=== PATIENT | female | born 1970 | race African-American/Black ===

== ENCOUNTER 2019-11-24 18:12 | Emergency (ER) | payer BC ==
[~2019-11-24] VITALS: Ht 167.6 cm; Wt 86.2 kg
[2019-11-24 18:22] VITALS: BP 129/79
[2019-11-24] MEDS ORDERED: Omnipaque-300 100ml vial INJ ONE (19:00)
[2019-11-24] MEDS ORDERED: Ketorolac 30mg Inj IV ONE (19:00)
[2019-11-24] MEDS ORDERED: cefTRIAXone 1 GM in NS 55 ML IVPB ONE (19:00)
[2019-11-24 20:29] LABS: BASOPHILS % (AUTO) 2.1 % (0.0-2.0); EOSINOPHILS % (AUTO) 1.7 % (0.0-3.0); HEMATOCRIT 39.9 % (37.0-47.0); HEMOGLOBIN 12.7 G/DL (12.0-16.0); LYMPHOCYTES % (AUTO) 36.1 % (20.0-45.0); MEAN CORPUSCULAR VOLUME 87 FL (80-99); MONOCYTES % (AUTO) 7.8 % (1.0-10.0); NEUTROPHILS % (AUTO) 52.2 % (45.0-75.0); PLATELET COUNT 300 K/UL (150-450); RED BLOOD COUNT 4.59 M/UL (4.20-5.40); RED CELL DISTRIBUTION WIDTH 13.2 % (11.6-14.8); WHITE BLOOD COUNT 7.7 K/UL (4.8-10.8)
[2019-11-24 20:36] LABS: ANION GAP 13 mmol/L (5-15); BLOOD UREA NITROGEN 16 mg/dL (7-18); CALCIUM 9.9 MG/DL (8.5-10.1); CARBON DIOXIDE 25 MMOL/L (21-32); CHLORIDE 102 MMOL/L (98-107); CREATININE 0.9 MG/DL (0.55-1.30); SODIUM 139 MMOL/L (136-145)
--- NOTE | 2019-11-24 21:15 | Diagnostic Imaging Report ---
EXAM: CT Neck With Intravenous Contrast CLINICAL HISTORY: PAIN TECHNIQUE: Axial computed tomography images of the neck with intravenous contrast. CTDI is 185 mGy and DLP is 511 mGy-cm. One or more of the following dose reduction techniques were used: automated exposure control, adjustment of the mA and/or kV according to patient size, use of iterative reconstruction technique. COMPARISON: No relevant prior studies available. FINDINGS: Oropharynx: Unremarkable. No significant tonsillar enlargement. No peritonsillar abscess. Hypopharynx: Unremarkable. Larynx: Unremarkable. Normal epiglottis. Trachea: Unremarkable. Retropharyngeal space: Unremarkable. Submandibular/parotid glands: Unremarkable. Glands are normal in size. Thyroid: Recommend outpatient thyroid ultrasound to further characterize calcified left thyroid 1.2 cm nodule. Bones/joints: Spine straightening could represent positioning or muscle spasm. No acute fracture. Soft tissues: Unremarkable. Vasculature: No acute findings. Lymph nodes: Unremarkable. No lymphadenopathy. Lung apices: Unremarkable as visualized. IMPRESSION: 1. No acute abnormality definitively identified to explain patient presentation. 2. Recommend outpatient thyroid ultrasound to further characterize calcified left thyroid 1.2 cm nodule. 3. Spine straightening could represent positioning or muscle spasm. 4. Otherwise unremarkable study.
--- NOTE | 2019-11-24 21:40 | Emergency Room Report ---
History of Present Illness General Chief Complaint: Pain Source: Patient Present Illness Allergies: Coded Allergies: No Known Allergies (Unverified , 11/24/19) COVID-19 Screening Contact w/high risk pt: No Experienced COVID-19 symptoms?: No COVID-19 Testing performed CORPORATE EXECUTIVE: No Patient History Last Menstrual Period: 11/10/19 Physical Exam Vital Signs Date Time Temp Pulse Resp B/P (MAP) Pulse Ox O2 Delivery O2 Flow Rate FiO2 11/24/19 18:22 98.4 76 15 129/79 (96) 96 Room Air Medical Decision Making PA Attestation Dr. Del Rosario Is my supervising Physician whom patient management has been discussed with. Diagnostic Impression: Primary Impression: Obstruction of sublingual gland Additional Impression: Salivary gland obstruction ER Course Pt. presents to the ED c/o that of facial swelling that extends down into the neck progressive x 4 days. Denies fevers or chills. Reports pain with swallowing. Ddx considered but are not limited to sialoadenitis, sialolithiasis, mumps, abscess, neoplasm/mass, adenopathy. Vital signs: are WNL, pt. is afebrile H&PE are most consistent with sialoadenitis, due to extension down into the neck further imaging is required. ORDERS: -CT Neck with contrast: -CBC with differential: WNL -BMP: WNL ED INTERVENTIONS: --- 1g Rocephin IV -Toradol 30mg IM DISCHARGE: At this time pt. is stable for d/c to home. Will provide printed patient care instructions, and any necessary prescriptions. Care plan and follow up instructions have been discussed with the patient prior to discharge. Labs Test 11/24/19 20:12 White Blood Count 7.7 K/UL (4.8-10.8) Red Blood Count 4.59 M/UL (4.20-5.40) Hemoglobin 12.7 G/DL (12.0-16.0) Hematocrit 39.9 % (37.0-47.0) Mean Corpuscular Volume 87 FL (80-99) Mean Corpuscular Hemoglobin 27.6 PG (27.0-31.0) Mean Corpuscular Hemoglobin Concent 31.8 G/DL (32.0-36.0) Red Cell Distribution Width 13.2 % (11.6-14.8) Platelet Count 300 K/UL (150-450) Mean Platelet Volume 6.6 FL (6.5-10.1) Neutrophils (%) (Auto) 52.2 % (45.0-75.0) Lymphocytes (%) (Auto) 36.1 % (20.0-45.0) Monocytes (%) (Auto) 7.8 % (1.0-10.0) Eosinophils (%) (Auto) 1.7 % (0.0-3.0) Basophils (%) (Auto) 2.1 % (0.0-2.0) Sodium Level 139 MMOL/L (136-145) Potassium Level 4.0 MMOL/L (3.5-5.1) Chloride Level 102 MMOL/L (98-107) Carbon Dioxide Level 25 MMOL/L (21-32) Anion Gap 13 mmol/L (5-15) Blood Urea Nitrogen 16 mg/dL (7-18) Creatinine 0.9 MG/DL (0.55-1.30) Estimat Glomerular Filtration Rate > 60 mL/min (>60) Glucose Level 92 MG/DL (74-106) Calcium Level 9.9 MG/DL (8.5-10.1) CT/MRI/US Diagnostic Results CT/MRI/US Diagnostic Results : Imaging Test Ordered: CT NEck w. Contrast Impression "IMPRESSION: 1. No acute abnormality definitively identified to explain patient presentation. 2. Recommend outpatient thyroid ultrasound to further characterize calcified left thyroid 1.2 cm nodule. 3. Spine straightening could represent positioning or muscle spasm. 4. Otherwise unremarkable study." Per official radiology report- Please see report for specific details. Last Vital Signs Date Time Temp Pulse Resp B/P (MAP) Pulse Ox O2 Delivery O2 Flow Rate FiO2 11/24/19 20:29 98.4 11/24/19 18:22 76 15 129/79 96 Room Air Disposition: HOME, SELF-CARE Condition: Stable Referrals: NON PHYSICIAN (PCP) Patient Instructions: Salivary Gland Infection, Salivary Stone Additional Instructions: Take medications as directed. Do not drink alcohol, drive, or operate heavy machinery while taking [ ] as this may cause drowsiness. Follow up with an ENT SPECIALIST and your PCP in 3-5 days, even if your symptoms have resolved. Return sooner to ED if new symptoms occur, or current symptoms become worse. - Please note that this Emergency Department Report was dictated using [employer] cutter technology software, occasionally this can lead to erroneous entry secondary to interpretation by the dictation equipment. Nora Davila Nov 24, 2019 21:40
[2019-11-24] MEDS ORDERED: IBUPROFEN600 M1 ORAL (21:46)
[2019-11-24] MEDS ORDERED: CEPHALEXIN500 MG ORAL (21:46)
[2019-11-24 21:54] VITALS: BP 125/77
== END 2019-11-24 21:54 | disposition home or self-care (01) ==
LOC: EMR 18:49
DX: K11.8 Other diseases of salivary glands (principal); E04.1 Nontoxic single thyroid nodule
CPT/HCPCS: 36415; 70491; 80048; 85025; 96365; 96375; 99284; J0696; J1885; Q9967